=== PATIENT | male | born 1990 | race Caucasian/White ===

== ENCOUNTER → 2018-03-05 11:46 | Outpatient (CLI) | payer OTHER, SELFPAY ==
--- NOTE | 2018-03-07 09:52 | PM.PFT.1 ---
Pulmonary Function Test Referral & Results Date Patient Seen: 03/05/18 Requesting provider: Giovany Fountain Results: The spirometry demonstrates an FVC of 6.0 L which is 102% of predicted. The FEV1 was measured at 5.28 L which is 110% of predicted. The FEV1/FVC ratio was 88 which is 107% of predicted. No bronchodilator was administered Lung volumes show an SVC of 6.03 L which is 107% of predicted. No diffusing capacity was performed Interpretation: This study demonstrates normal spirometry
== END ==
PROVIDERS: Visit Provider Family Medicine
DX: Z02.1 Encounter for pre-employment examination (principal)
CPT/HCPCS: 94010

== ENCOUNTER 2018-04-11 15:37 | Emergency (ER) | payer SELFPAY ==
[2018-04-11 15:40] VITALS: PULSE 61; RESP 16; O2SAT 98
[2018-04-11 18:27] VITALS: BP 110/64; PULSE 56; RESP 19; O2SAT 99
--- NOTE | 2018-04-11 18:27 | ED.BACK ---
HPI - Back Pain/Injury <KEYONNA Holguin - Last Filed: 04/11/18 22:23> General Chief Complaint: Back Pain/Injury Stated Complaint: stated pain in back Time Seen by Provider: 04/11/18 18:28 Source: patient Mode of arrival: ambulatory Limitations: no limitations History of Present Illness HPI Narrative: 28-year-old male with history of back pain issues and is a nonsmoker for complaint of lower back pain mostly to the left side over the past several weeks. He reports that his pain has waxed and waned over this timeframe. He denies any trauma to the lower back. He states that over the past couple of days he has had pain radiating into his left posterior thigh and buttocks. He is ambulatory into the emergency room. He reports increased pain with motion of the lower back. No loss of bladder or bowel control. No numbness to the groin area. No other concerns or complaints at this Related Data Previous Rx's Medication Instructions Recorded cyclobenzaprine 10 mg PO TID PRN #15 tab 04/11/18 prednisone 40 mg PO DAILY #8 tab 04/11/18 Allergies Allergy/AdvReac Type Severity Reaction Status Date / Time No Known Drug Allergies Allergy Verified 04/11/18 15:40 Review of Systems <KEYONNA Holguin - Last Filed: 04/11/18 22:23> Constitutional Denies chills, Denies fever(s), Denies lethargy and Denies weakness Eyes Denies change in vision, Denies eye discharge, Denies irritation and Denies loss of vision ENT Ears, Nose, Mouth, and Throat: Denies change in voice, Denies neck pain and Denies sore throat Cardiovascular Denies chest pain, Denies irregular heart rhythm, Denies lightheadedness, Denies palpitations, Denies dyspnea, Denies dyspnea on exertion and Denies orthopnea Respiratory Denies cough, Denies dyspnea, Denies dyspnea on exertion and Denies wheezing Genitourinary Denies hematuria, Denies flank pain, Denies urinary incontinence and Denies urinary urgency Musculoskeletal Reports back pain and Denies neck pain Integumentary/Breasts Denies pruritus, Denies erythema, Denies rash and Denies wounds Neurologic Denies confusion, Denies loss of vision and Denies weakness Psychiatric Denies anxiety, Denies confusion, Denies depression, Denies homicidal ideation and Denies suicidal ideation Endocrine Denies palpitations Hematologic/Lymphatic Denies easy bruising Allergic/Immunologic Denies wheezing Exam <KEYONNA Holguin - Last Filed: 04/11/18 22:23> Initial Vital Signs Initial Vital Signs: Vital Signs Pulse Rate 61 04/11/18 15:40 Respiratory Rate 16 04/11/18 15:40 Pulse Oximetry 98 04/11/18 15:40 Const General: cooperative and well developed Nutritional Appearance: well nourished Orientation: alert, awake, oriented x3 and not confused HENMT Mouth: moist mucous membranes Resp Effort & Inspection: normal respiratory effort, able to speak in complete sentences, no respiratory distress and no use of accessory muscles Auscultation: clear to auscultation bilaterally, no rales, no rhonchi and no wheezes Cardio Rate: regular rate Rhythm: regular rhythm Heart Sounds: no click, no gallops, no murmurs and no rubs Pulses: normal peripheral pulses Back/Spine/Pelvis Other: Tenderness of the paraspinals of the lumbar spine. No signs of trauma to the lumbar spine area. No midline tenderness. Muscle spasm to left paraspinals. Tenderness radiates into the left buttocks area. Distal CMS is intact. Skin General: no rashes or lesions noted, No jaundice and No petechiae Neuro General: alert, oriented x3, gait normal and no focal motor deficits Speech: speech normal <Beka Pederson DO - Last Filed: 04/12/18 00:15> Initial Vital Signs Initial Vital Signs: Vital Signs Pulse Rate 61 04/11/18 15:40 Respiratory Rate 16 04/11/18 15:40 Pulse Oximetry 98 04/11/18 15:40 Course <KEYONNA Holguin - Last Filed: 04/11/18 22:23> Orders Ordered: ED Orders 04/11/18 18:48 XR lumbar spine 2-3V Stat Discontinued Medications Cyclobenzaprine HCl (Flexeril) 10 mg PO NOW ONE Stop: 04/11/18 18:50 Last Admin: 04/11/18 18:52 Dose: 10 mg Ibuprofen (Advil) 800 mg PO NOW ONE Stop: 04/11/18 20:26 Last Admin: 04/11/18 20:15 Dose: 800 mg Vital Signs - 8 hr 04/11/18 18:27 04/11/18 19:26 Pulse Rate 56 L 56 L Respiratory Rate 19 18 Blood Pressure [Right Arm] 110/64 108/65 Pulse Oximetry 99 98 <Beka Pederson DO - Last Filed: 04/12/18 00:15> Orders Ordered: ED Orders 04/11/18 18:48 XR lumbar spine 2-3V Stat Discontinued Medications Cyclobenzaprine HCl (Flexeril) 10 mg PO NOW ONE Stop: 04/11/18 18:50 Last Admin: 04/11/18 18:52 Dose: 10 mg Ibuprofen (Advil) 800 mg PO NOW ONE Stop: 04/11/18 20:26 Last Admin: 04/11/18 20:15 Dose: 800 mg Vital Signs - 8 hr 04/11/18 18:27 04/11/18 19:26 Pulse Rate 56 L 56 L Respiratory Rate 19 18 Blood Pressure [Right Arm] 110/64 108/65 Pulse Oximetry 99 98 MDM - Back Pain/Injury <KEYONNA Holguin - Last Filed: 04/11/18 22:23> Imaging Data Lumbar spine : Radiologist's impression: [place] [address] XRay Report Signed Patient: Wesley Etienne R#: [id number] : 1990Acct:[id number] Age/Sex: te of Service: 04/11/18 Loc: ED Accession Number: [id number] Procedure: XR lumbar spine 2-3V Ordering Provider: Fransico Prado PROCEDURE: XR LUMBAR SPINE 2-3V INDICATIONS: 4 week history lumbar pain TECHNIQUE: 3 views of the lumbar spine were acquired. COMPARISON: [facility], , L-SPINE 2-3 VIEWS, 10/17/2007, 15:26. FINDINGS: Bones: 5 [id number] vertebrae are present. There is suggestion of bilateral pars defect at L5 level where grade 1 anterolisthesis of L5 on S1. No vertebral body compression fractures. No suspicious bony lesions. Soft tissues: Overlying bowel gas pattern is normal. No suspicious soft tissue calcifications. IMPRESSION: No acute compression fracture in lumbar spine. Grade 1 anterolisthesis of L5 on S1 with bilateral pars defect at L5 level unchanged from 2008 study. Dictated by: Terrell Costello M.D. on 04/11/2018 at 19:18 Approved by: Terrell Costello M.D. on 04/11/2018 at 19:18 [facility] Narrative Medical decision making narrative: x-ray the lumbar spine was obtained was negative for any acute findings. X-ray was stable compared to x-ray of his lumbar spine from 2008. signs and symptoms presents as sprain into the lumbar area along with sciatica. He is prescribed cyclobenzaprine to help with muscle spasm and tension. [id number] ibuprofen as needed for discomfort. Short course of prednisone as prescribed to help with anti-inflammatory effects and sciatica. Follow up with primary care provider. Return emergency room for any worsening sym. patient desired to have more pain medication other than Tylenol or ibuprofen. Patient was informed that I was not comfortable prescribing narcotics at this timeframe. Patients history does list polysubstance abuse. <Beka Pederson, - Last Filed: 04/12/18 00:15> Cosign ED Attending Lloyd Attestation: I was immediately available in the department for consultation. Documentation has been reviewed. I agree with assessment and plan.
--- NOTE | 2018-04-11 18:48 | DI.RAD.S_ITS ---
PROCEDURE: XR LUMBAR SPINE 2-3V INDICATIONS: 4 week history lumbar pain TECHNIQUE: 3 views of the lumbar spine were acquired. COMPARISON: [facility], , L-SPINE 2-3 VIEWS, 10/17/2007, 15:26. FINDINGS: Bones: 5 [id number] vertebrae are present. There is suggestion of bilateral pars defect at L5 level where grade 1 anterolisthesis of L5 on S1. No vertebral body compression fractures. No suspicious bony lesions. Soft tissues: Overlying bowel gas pattern is normal. No suspicious soft tissue calcifications. IMPRESSION: No acute compression fracture in lumbar spine. Grade 1 anterolisthesis of L5 on S1 with bilateral pars defect at L5 level unchanged from 2007 study. Dictated by: Terrell Costello M.D. on 04/11/2018 at 19:18 Approved by: Terrell Costello M.D. on 04/11/2018 at 19:18
[2018-04-11] MEDS: CYCLOBENZAPRINE 10 MG TABLET PO (18:52)
[2018-04-11 19:26] VITALS: BP 108/65; PULSE 56; RESP 18; O2SAT 98
[2018-04-11] MEDS: IBUPROFEN 400 MG TABLET 800 MG PO (20:15)
--- NOTE | 2018-04-11 20:47 | PC.NURSE ---
Pt states still in 9 pain at 1940, flexeril is not working. Reports came here to see a Dr and wants to see Dr Pederson not a Nurse Practitioner, Johan who has been providing care. Charge Nurse, KEYONNA Prado and Dr Pederson aware. KEYONNA Prado, back in room to update pt. Pt was offered ibuprofen and declined initially then changed his mind and was given 800mg ibuprofen po.
--- NOTE | 2018-04-11 22:17 | ED.BACK ---
HPI - Back Pain/Injury <KEYONNA Holguin - Last Filed: 04/11/18 22:22> General Chief Complaint: Back Pain/Injury Stated Complaint: stated pain in back Time Seen by Provider: 04/11/18 18:28 Source: patient Mode of arrival: ambulatory Limitations: no limitations History of Present Illness HPI Narrative: 28-year-old healthy male that is a nonsmoker here for complaint of pain into his left lower back over the past several weeks. He states that he was lifting his cramping 8 when his symptoms started. he denies any trauma to the lower back area. No loss of bladder or bowel control. No numbness to his groin area. He reports that the pain radiates into his left buttocks area and left post MD Complaint: back pain Related Data Previous Rx's Medication Instructions Recorded cyclobenzaprine 10 mg PO TID PRN #15 tab 04/11/18 prednisone 40 mg PO DAILY #8 tab 04/11/18 Allergies Allergy/AdvReac Type Severity Reaction Status Date / Time No Known Drug Allergies Allergy Verified 04/11/18 15:40 Review of Systems <KEYONNA Holguin - Last Filed: 04/11/18 22:22> Constitutional Denies weakness Eyes Denies loss of vision ENT Ears, Nose, Mouth, and Throat: Denies change in voice, Denies neck pain and Denies sore throat Cardiovascular Denies chest pain, Denies irregular heart rhythm, Denies lightheadedness, Denies palpitations, Denies dyspnea, Denies dyspnea on exertion and Denies orthopnea Respiratory Denies cough, Denies dyspnea, Denies dyspnea on exertion and Denies wheezing Gastrointestinal Gastrointestinal: Denies abdominal pain, Denies change in bowel habits, Denies diarrhea, Denies nausea and Denies vomiting Musculoskeletal Denies neck pain Comments: Left lumbar back pain Integumentary/Breasts Denies pruritus, Denies erythema, Denies rash and Denies wounds Neurologic Denies confusion, Denies loss of vision and Denies weakness Psychiatric Denies confusion Endocrine Denies palpitations Hematologic/Lymphatic Denies easy bruising Allergic/Immunologic Denies wheezing Exam <KEYONNA Holguin - Last Filed: 04/11/18 22:22> Initial Vital Signs Initial Vital Signs: Vital Signs Pulse Rate 61 04/11/18 15:40 Respiratory Rate 16 04/11/18 15:40 Pulse Oximetry 98 02/20/19 15:40 Const General: cooperative and well developed Nutritional Appearance: well nourished Orientation: alert, awake, oriented x3 and not confused HENNE Mouth: oral mucosae normal and moist mucous membranes Eyes Conjunctivae: conjunctivae normal Sclera: sclerae normal Pupils: PERRL EOM: EOM intact bilaterally Resp Effort & Inspection: normal respiratory effort, able to speak in complete sentences, no respiratory distress and no use of accessory muscles Auscultation: clear to auscultation bilaterally, no rales, no rhonchi and no wheezes Cardio Rate: regular rate Rhythm: regular rhythm Heart Sounds: no click, no gallops, no murmurs and no rubs Pulses: normal peripheral pulses Back/Spine/Pelvis Other: tenderness on palpation to the paraspinals of the the left lumbar region. Back with no signs of trauma. No ecchymosis. No deformities. No midline tenderness. Distal sensation is intact. Distal range of motion is intact. Dista Skin General: no rashes or lesions noted, No jaundice and No petechiae Neuro General: alert, oriented x3, gait normal and no focal motor deficits Speech: speech normal <Beka Pederson DO - Last Filed: 04/12/18 00:15> Initial Vital Signs Initial Vital Signs: Vital Signs Pulse Rate 61 04/11/18 15:40 Respiratory Rate 16 04/11/18 15:40 Pulse Oximetry 98 04/11/18 15:40 Course <KEYONNA Holguin - Last Filed: 04/11/18 22:22> Orders Ordered: ED Orders 04/11/18 18:48 XR lumbar spine 2-3V Stat Discontinued Medications Cyclobenzaprine HCl (Flexeril) 10 mg PO NOW ONE Stop: 04/11/18 18:50 Last Admin: 04/11/18 18:52 Dose: 10 mg Ibuprofen (Advil) 800 mg PO NOW ONE Stop: 04/11/18 20:26 Last Admin: 04/11/18 20:15 Dose: 800 mg Vital Signs - 8 hr 04/11/18 18:27 04/11/18 19:26 Pulse Rate 56 L 56 L Respiratory Rate 19 18 Blood Pressure [Right Arm] 110/64 108/65 Pulse Oximetry 99 98 <Beka Pederson DO - Last Filed: 04/12/18 00:15> Orders Ordered: ED Orders 04/11/18 18:48 XR lumbar spine 2-3V Stat Discontinued Medications Cyclobenzaprine HCl (Flexeril) 10 mg PO NOW ONE Stop: 04/11/18 18:50 Last Admin: 04/11/18 18:52 Dose: 10 mg Ibuprofen (Advil) 800 mg PO NOW ONE Stop: 04/11/18 20:26 Last Admin: 04/11/18 20:15 Dose: 800 mg Vital Signs - 8 hr 04/11/18 18:27 04/11/18 19:26 Pulse Rate 56 L 56 L Respiratory Rate 19 18 Blood Pressure [Right Arm] 110/64 108/65 Pulse Oximetry 99 98 MDM - Back Pain/Injury <KEYONNA Holguin - Last Filed: 04/11/18 22:22> MDM Narrative Medical decision making narrative: Sinus symptoms presents as a lumbar strain with muscle spasm and sciatica to the left side. He is placed on a muscle relaxer cyclobenzaprine. Also use [id number]-[id number] ibuprofen. Short course of prednisone is provided for anti-inflammatory effects for the sciatica. For rest area. Gentle range of motion to painful areas help keep muscle fluids. Follow up with primary care provider. Return emergency room for any worsening symptoms. Discharge Plan Departure Patient Disposition: Home Clinical Impression: Sciatica of left side Strain of lumbar region Qualifiers: Encounter type: initial encounter Qualified Code(s): S39.012A - Strain of muscle, fascia and tendon of lower back, initial encounter Discharge Date/Time: 04/11/18 19:52 Interventions: ED Discharge Assessment Last Done: 04/11/18 19:52 Instructions: DI for Back Pain With Sciatica, DI for Back Strain or Sprain Activity Restrictions/Additional Instructions: x-ray of the lumbar spine was obtained was negative for any acute fractures or findings. X-ray is stable compared with prior x-ray obtained in 2007. Signs and symptoms presents sprain into the lumbar region causing sciatica to the left side. Rest area. Gentle range of motion painful areas to help keep muscles loose. you are prescribed a muscle relaxer called cyclobenzaprine help loosen muscles. Use yhbr-haj-[id number] ibuprofen as needed for discomfort anti-inflammatory effects. Short course of prednisone as prescribed for anti-inflammatory effects use as directed. Follow up with her primary care provider. Return emergency room for any worsening symptoms. Prescriptions: New cyclobenzaprine 10 mg tablet 10 mg PO TID PRN (Reason: muscle spasm) Qty: 15 RF: 0 prednisone 20 mg tablet 40 mg PO DAILY Qty: 8 RF: 0 Referrals: [facility] [Provider Group] <Beka Pederson DO - Last Filed: 04/12/18 00:15> Cosign ED Attending Lloyd Attestation: I was immediately available in the department for consultation. Documentation has been reviewed. I agree with assessment and plan.
--- NOTE | 2018-04-11 22:22 | ED_ITS ---
HPI - Back Pain/Injury <KEYONNA Holguin - Last Filed: 04/11/18 22:22> General Chief Complaint: Back Pain/Injury Stated Complaint: stated pain in back Time Seen by Provider: 04/11/18 18:28 Source: patient Mode of arrival: ambulatory Limitations: no limitations History of Present Illness HPI Narrative: 28-year-old healthy male that is a nonsmoker here for complaint of pain into his left lower back over the past several weeks. He states that he was lifting his cramping 8 when his symptoms started. he denies any trauma to the lower back area. No loss of bladder or bowel control. No numbness to his groin area. He reports that the pain radiates into his left buttocks area and left post MD Complaint: back pain Related Data Previous Rx's Medication Instructions Recorded cyclobenzaprine 10 mg PO TID PRN #15 tab 04/11/18 prednisone 40 mg PO DAILY #8 tab 04/11/18 Allergies Allergy/AdvReac Type Severity Reaction Status Date / Time No Known Drug Allergies Allergy Verified 04/11/18 15:40 Review of Systems <KEYONNA Holguin - Last Filed: 04/11/18 22:22> Constitutional Denies weakness Eyes Denies loss of vision ENT Ears, Nose, Mouth, and Throat: Denies change in voice, Denies neck pain and Denies sore throat Cardiovascular Denies chest pain, Denies irregular heart rhythm, Denies lightheadedness, Denies palpitations, Denies dyspnea, Denies dyspnea on exertion and Denies orthopnea Respiratory Denies cough, Denies dyspnea, Denies dyspnea on exertion and Denies wheezing Gastrointestinal Gastrointestinal: Denies abdominal pain, Denies change in bowel habits, Denies diarrhea, Denies nausea and Denies vomiting Musculoskeletal Denies neck pain Comments: Left lumbar back pain Integumentary/Breasts Denies pruritus, Denies erythema, Denies rash and Denies wounds Neurologic Denies confusion, Denies loss of vision and Denies weakness Psychiatric Denies confusion Endocrine Denies palpitations Hematologic/Lymphatic Denies easy bruising Allergic/Immunologic Denies wheezing Exam <KEYONNA Holguin - Last Filed: 04/11/18 22:22> Initial Vital Signs Initial Vital Signs: Vital Signs Pulse Rate 61 04/11/18 15:40 Respiratory Rate 16 04/11/18 15:40 Pulse Oximetry 98 02/20/19 15:40 Const General: cooperative and well developed Nutritional Appearance: well nourished Orientation: alert, awake, oriented x3 and not confused HENNM Mouth: oral mucosae normal and moist mucous membranes Eyes Conjunctivae: conjunctivae normal Sclera: sclerae normal Pupils: PERRL EOM: EOM intact bilaterally Resp Effort & Inspection: normal respiratory effort, able to speak in complete sentences, no respiratory distress and no use of accessory muscles Auscultation: clear to auscultation bilaterally, no rales, no rhonchi and no wheezes Cardio Rate: regular rate Rhythm: regular rhythm Heart Sounds: no click, no gallops, no murmurs and no rubs Pulses: normal peripheral pulses Back/Spine/Pelvis Other: tenderness on palpation to the paraspinals of the the left lumbar region. Back with no signs of trauma. No ecchymosis. No deformities. No midline tenderness. Distal sensation is intact. Distal range of motion is intact. Dista Skin General: no rashes or lesions noted, No jaundice and No petechiae Neuro General: alert, oriented x3, gait normal and no focal motor deficits Speech: speech normal <Beka Pederson DO - Last Filed: 04/12/18 00:15> Initial Vital Signs Initial Vital Signs: Vital Signs Pulse Rate 61 04/11/18 15:40 Respiratory Rate 16 04/11/18 15:40 Pulse Oximetry 98 04/11/18 15:40 Course <KEYONNA Holugin - Last Filed: 04/11/18 22:22> Orders Ordered: ED Orders 04/11/18 18:48 XR lumbar spine 2-3V Stat Discontinued Medications Cyclobenzaprine HCl (Flexeril) 10 mg PO NOW ONE Stop: 04/11/18 18:50 Last Admin: 04/11/18 18:52 Dose: 10 mg Ibuprofen (Advil) 800 mg PO NOW ONE Stop: 04/11/18 20:26 Last Admin: 04/11/18 20:15 Dose: 800 mg Vital Signs - 8 hr 04/11/18 18:27 04/11/18 19:26 Pulse Rate 56 L 56 L Respiratory Rate 19 18 Blood Pressure [Right Arm] 110/64 108/65 Pulse Oximetry 99 98 <Beka Pederson DO - Last Filed: 04/12/18 00:15> Orders Ordered: ED Orders 04/11/18 18:48 XR lumbar spine 2-3V Stat Discontinued Medications Cyclobenzaprine HCl (Flexeril) 10 mg PO NOW ONE Stop: 04/11/18 18:50 Last Admin: 04/11/18 18:52 Dose: 10 mg Ibuprofen (Advil) 800 mg PO NOW ONE Stop: 04/11/18 20:26 Last Admin: 04/11/18 20:15 Dose: 800 mg Vital Signs - 8 hr 04/11/18 18:27 04/11/18 19:26 Pulse Rate 56 L 56 L Respiratory Rate 19 18 Blood Pressure [Right Arm] 110/64 108/65 Pulse Oximetry 99 98 MDM - Back Pain/Injury <KEYONNA Holguin - Last Filed: 04/11/18 22:22> MDM Narrative Medical decision making narrative: Sinus symptoms presents as a lumbar strain with muscle spasm and sciatica to the left side. He is placed on a muscle relaxer cyclobenzaprine. Also use [id number] ibuprofen. Short course of prednisone is provided for anti-inflammatory effects for the sciatica. For rest area. Gentle range of motion to painful areas help keep muscle fluids. Follow up with primary care provider. Return emergency room for any worsening symptoms. Discharge Plan Departure Patient Disposition: Home Clinical Impression: Sciatica of left side Strain of lumbar region Qualifiers: Encounter type: initial encounter Qualified Code(s): S39.012A - Strain of muscle, fascia and tendon of lower back, initial encounter Discharge Date/Time: 04/11/18 19:52 Interventions: ED Discharge Assessment Last Done: 04/11/18 19:52 Instructions: DI for Back Pain With Sciatica, DI for Back Strain or Sprain Activity Restrictions/Additional Instructions: x-ray of the lumbar spine was obtained was negative for any acute fractures or findings. X-ray is stable compared with prior x-ray obtained in 2007. Signs and symptoms presents sprain into the lumbar region causing sciatica to the left side. Rest area. Gentle range of motion painful areas to help keep muscles loose. you are prescribed a muscle relaxer called cyclobenzaprine help loosen muscles. Use [id number] ibuprofen as needed for discomfort anti- inflammatory effects. Short course of prednisone as prescribed for anti- inflammatory effects use as directed. Follow up with her primary care provider. Return emergency room for any worsening symptoms. Prescriptions: New cyclobenzaprine 10 mg tablet 10 mg PO TID PRN (Reason: muscle spasm) Qty: 15 RF: 0 prednisone 20 mg tablet 40 mg PO DAILY Qty: 8 RF: 0 Referrals: [facility] [Provider Group] <Beka Pederson DO - Last Filed: 04/12/18 00:15> Cosign ED Attending Lloyd Attestation: I was immediately available in the department for consultation. Documentation has been reviewed. I agree with assessment and plan.
== END 2018-04-11 19:52 | disposition home or self-care (01) ==
PROVIDERS: Emergency Provider Nurse Practitioner Family
DX: S39.012A Strain of muscle, fascia and tendon of lower back, initial encounter (principal); M54.32 Sciatica, left side
CPT/HCPCS: 72100; 99283

== ENCOUNTER 2019-01-03 16:57 | Emergency (ER) | payer MEDICAID, SELFPAY ==
[2019-01-03 17:04] VITALS: BP 129/78; PULSE 78; RESP 16; TEMP 36.4; O2SAT 97; BMI 23.7
--- NOTE | 2019-01-03 17:07 | DI.RAD.S_ITS ---
PROCEDURE: XR FOREARM RT 2V INDICATIONS: localized swelling and pain to right forearm TECHNIQUE: 2 views of the forearm were acquired. COMPARISON: [facility], , HAND AND WRIST 3V RIGHT, 10/01/2012, 18:15. FINDINGS: Bones: No fractures or dislocations. No suspicious bony lesions. Soft tissues: No suspicious soft tissue calcifications or masses. IMPRESSION: Negative plain films. Dictated by: Jairo Delcid M.D. on 01/03/2019 at 16:25 Approved by: Jairo Delcid M.D. on 01/03/2019 at 16:31
--- NOTE | 2019-01-03 17:08 | PC.NURSE ---
Pt with localized distal forearm swelling x 2 days without trauma. no open sores. 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 mild ecchymosis to area. 2+ pulse palpable. reports he is unable to fully make a fist and open hand due to pain.
--- NOTE | 2019-01-03 17:13 | ED.UPPEXIN ---
HPI - Extremity Injury (Upper) <KEYONNA Stokes - Last Filed: 01/03/19 19:40> General Chief Complaint: Extremity Injury, Upper Stated Complaint: swollen right arm Time Seen by Provider: 01/03/19 17:00 Source: patient Mode of arrival: Ambulatory Limitations: no limitations History of Present Illness HPI narrative: 28yo healthy male, presents emergency department complaining of a swollen right forearm. 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 He states he noted some soreness and swelling to the radial aspect of his distal forearm yesterday, today he returned from work and noticed increased swelling and slight amount of bruising to the area. He reports pain with making a fist and with radial flexion of the hand. He states the pain is a dull aching 5/10. Patient took some ibuprofen today about 2 hours ago which has not relieved the swelling or the pain. He denies any previous injury to the area or any trauma to the area. He denies fevers, chills, history of gout, history of immune disorders, elbow pain, hand pain, nausea, vomiting, diarrhea, or other concerns. Related Data Previous Rx's Medication Instructions Recorded cyclobenzaprine 10 mg PO TID PRN #15 tab 04/11/18 prednisone 40 mg PO DAILY #8 tab 04/11/18 ketorolac 10 mg PO Q6H PRN 5 Days #14 tab 01/03/19 Allergies Allergy/AdvReac Type Severity Reaction Status Date / Time No Known Drug Allergies Allergy Verified 04/11/18 15:40 Review of Systems <KEYONNA Stokes - Last Filed: 01/03/19 19:40> Review of Systems Narrative: REVIEW OF SYSTEMS: GENERAL: Denies fever or chills. HENT: No head trauma. EYES: No double vision or vision loss. CARDIOVASCULAR: No chest pain or syncope. RESPIRATORY: No shortness of breath or cough. GASTROINTESTINAL: No nausea, vomiting, diarrhea, or constipation. GENITOURINARY: No flank pain or dysuria. MUSCULOSKELETAL: Complains of right forearm pain, see HPI. INTEGUMENTARY: No rash, lesions, or pruritus. NEURO: No numbness, tingling. PSYCH: No behavior or mood changes. Patient History <KEYONNA Stokes - Last Filed: 01/03/19 19:40> Medical History No significant medical problems (Acute) Social History Smoking Status: Never smoker alcohol intake frequency: holidays/special occasions only Substance Use Type: does not use Exam <KEYONNA Stokes - Last Filed: 01/03/19 19:40> Initial Vital Signs Initial Vital Signs: Vital Signs Temperature 97.5 F L 01/03/19 17:04 Pulse Rate 78 01/03/19 17:04 Respiratory Rate 16 01/03/19 17:04 Blood Pressure 129/78 01/03/19 17:04 Pulse Oximetry 97 01/03/19 17:04 PHYSICAL EXAMINATION: GENERAL: Well groomed, alert, and cooperative. Answers questions promptly and appropriately. Vital signs noted. HENT: Normocephalic, atraumatic. EYES: Symmetrical, sclera white, no periorbital swelling. CARDIOVASCULAR: S1 and S2 sounds normal. Regular rate and rhythm, no murmurs, clicks, or bruits. No pedal edema. RESPIRATORY: Normal respiratory rate, trachea midline, airway patent. No stridor, nasal flaring or accessory muscle use. Lungs are clear in all asencio. MUSCULOSKELETAL: A 8cm x 5cm hematoma with slight ecchymosis noted to radial aspect of distal right forearm, tenderness to palpation, no increased temperature, no erythema, + tenderness with palpation to area. Swelling to area decreased after an application of ice. Normal gait and coordination. Equal tone and mass bilaterally. No spinal tenderness or deformities. EXTREMITIES: CMS intact. No pedal edema. SKIN: Warm, dry, soft, appropriate color for ethnicity. No lesions, rashes, or wounds. NEURO: Alert and Oriented X 3. No sensory deficits. PSYCH: Appropriate affect and mood. <Radhames Allen DO - Last Filed: 01/09/19 07:25> Initial Vital Signs Initial Vital Signs: Vital Signs Temperature 97.5 F L 01/03/19 17:04 Pulse Rate 78 01/03/19 17:04 Respiratory Rate 16 01/03/19 17:04 Blood Pressure 129/78 01/03/19 17:04 Pulse Oximetry 97 01/03/19 17:04 Course <KEYONNA Stokes - Last Filed: 01/03/19 19:40> Course Course Narrative: Matt wrap was applied to the area and a wrist brace was given. Orders Ordered: ED Orders 01/03/19 17:07 XR forearm RT 2V Stat Consultations Consultation #1: Patient staffed with Dr. Allen. Vital Signs Vital signs: Vital Signs - 8 hr 01/03/19 17:04 01/03/19 18:17 Temperature 97.5 F L Pulse Rate 78 77 Respiratory Rate 16 16 Blood Pressure 129/78 124/72 Pulse Oximetry 97 98 <Radhames Allen DO - Last Filed: 01/09/19 07:25> Orders Ordered: ED Orders 01/03/19 17:07 XR forearm RT 2V Stat Vital Signs Vital signs: Vital Signs - 8 hr 01/03/19 17:04 01/03/19 18:17 Temperature 97.5 F L Pulse Rate 78 77 Respiratory Rate 16 16 Blood Pressure 129/78 124/72 Pulse Oximetry 97 98 MDM - Extremity Injury (Upper) <KEYONNA Stokes - Last Filed: 01/03/19 19:40> Medical Records Attestation: I reviewed the patient's medical records. Lab Data Attestation: I reviewed the patient's lab results. Imaging Data R forearm XR: Radiologist's impression: [address] [address] XRay Report Signed Patient: Wesley Etienne R#: [id number] : 1990Acct:[id number] Age/Sex: / MDate of Service: 01/03/19 Loc: ED Accession Number: [id number] Procedure: XR forearm RT 2V Ordering Provider: Evelyn Vides PROCEDURE: XR FOREARM RT 2V INDICATIONS: localized swelling and pain to right forearm TECHNIQUE: 2 views of the forearm were acquired. COMPARISON: [facility], , HAND AND WRIST 3V RIGHT, 10/01/2012, 18:15. FINDINGS: Bones: No fractures or dislocations. No suspicious bony lesions. Soft tissues: No suspicious soft tissue calcifications or masses. IMPRESSION: Negative plain films. Dictated by: Jairo Delcid M.D. on 01/03/2019 at 16:25 Approved by: Jairo Delcid M.D. on 01/03/2019 at 16:31 MDM Narrative Medical decision making narrative: This is a 28-year-old male presents emergency department for swelling to his right radial aspect of his distal forearm. X-rays negative for any fractures. Patient has decreased range of motion due to pain but is able to move wrist and thumb. Differential includes tendinitis, tendon sprain, or muscle strain (most likely due to bruising and swelling, reports of repetitive use of hand, negative x-ray, decreased swelling well emergency without ice). Less likely cellulitis due to lack of increased temp, redness, fevers, chills, or tachycardia. Less likely abscess due to lack of fluctuance or wound. Strict return precautions given. Patient was encouraged to follow up with his primary care provider for discussion of further testing and or physical therapy if symptoms continue. He was encouraged to monitor his activity closely for repetitive motions that may aggravate his symptoms. Discharge Plan Departure Patient Disposition: Home Clinical Impression: Contusion Qualifiers: Encounter type: initial encounter Contusion area: forearm Laterality: right Qualified Code(s): S50.11XA - Contusion of right forearm, initial encounter Forearm sprain Qualifiers: Encounter type: initial encounter Laterality: right Qualified Code(s): S63.501A - Unspecified sprain of right wrist, initial encounter Discharge Date/Time: 01/03/19 18:17 Instructions: DI for Wrist Sprain Activity Restrictions/Additional Instructions: Thank you for entrusting me with your care today. As discussed, your x-rays negative for any fractures. Your symptoms are most likely caused by a muscle strain. Please use an Matt wrap and brace as needed for comfort and swelling. I prescribed you Toradol, please take this with food as it can cause GI distress. Follow up with your primary care provider in the next week for re-evaluation to discuss further treatment and/or testing if needed such as physical therapy. Return emergency department if you develop new or worsening symptoms such as increased redness, high fevers, chest pain, shortness of breath, or other concerns Prescriptions: New ketorolac 10 mg tablet 10 mg PO Q6H PRN (Reason: pain and swelling) 5 Days Qty: 14 RF: 0 No Action cyclobenzaprine 10 mg tablet 10 mg PO TID PRN (Reason: muscle spasm) Qty: 15 RF: 0 prednisone 20 mg tablet 40 mg PO DAILY Qty: 8 RF: 0 <Radhames Allen, DO - Last Filed: 01/09/19 07:25> Sign Out Provider Sign Out Attestation: Dr Allen Co-Sign Statement: I was available for consultation during this patient's emergency department visit. This chart is signed by myself for administrative purposes only. I did not have direct contact with this patient during this visit. They were seen independently by the APC.
[2019-01-03 18:17] VITALS: BP 124/72; PULSE 77; RESP 16; O2SAT 98
== END 2019-01-03 18:17 | disposition home or self-care (01) ==
PROVIDERS: Emergency Provider Nurse Practitioner
DX: S50.11XA Contusion of right forearm, initial encounter (principal); S63.501A Unspecified sprain of right wrist, initial encounter; X50.3XXA Overexertion from repetitive movements, initial encounter
CPT/HCPCS: 29260; 73090; 99282; 99283

== ENCOUNTER → 2019-05-23 07:58 | Outpatient (CLI) | payer MEDICAID, SELFPAY ==
--- NOTE | 2019-05-23 | DI.ECHO.S_ITS ---
[facility] +---------+ [facility] +---------+ : : [id number] : : : : [id number] : : : : Phone: [phone] Echocardiogram Report + + :Name: MARILEE CHASE V Study Date: 05/23/2019 Height: 72 in : :[facility] Weight: 170 lb : : Gender: Male BSA: 2.0 m2 : :: 1990 Age: 29 yrs BP: 140/88 mmHg: :Reason For Study: Syncope : : Performed By: Tess Holcomb : :Referring: MARILEE CACERES : + + Interpretation Summary The left ventricle is normal in size and wall thickness. The ejection fraction is estimated to be 55-60%. Global longitudinal peak systolic strain is -16.3% which is within normal limtes. Diastolic parameters suggest probable normal left ventricular diastolic function and normal filling pressures. The right ventricle is normal in size and function. Pulmonary artery pressures cannot be estimated because of the lack of a measurable TR jet velocity but the IVC suggests a CVP of around 3 mmHg. Both atria are normal in size. There is no significant valvular heart disease. The aortic root is normal size. Procedure: A two-dimensional transthoracic echocardiogram with color flow and Doppler was performed. The study quality was technically adequate. There is no prior echocardiogram noted for this patient. The patient was in sinus bradycardia with heart rates between 53-69 bpm during the exam. Left Ventricle: The left ventricle is normal in size and wall thickness. The ejection fraction is estimated to be 55-60%. Global longitudinal peak systolic strain is -16.3% which is within normal limtes. Diastolic parameters suggest probable normal left ventricular diastolic function and normal filling pressures. Right Ventricle: The right ventricle is normal in size and function. Atria: Both atria are normal in size. There is no Doppler evidence for an interatrial shunt. Mitral Valve: The mitral valve is normal in structure and function. There is trace mitral regurgitation. Aortic Valve: The aortic valve is trileaflet. The aortic valve opens well. There is no aortic valve stenosis. No aortic regurgitation is present. Tricuspid Valve: The tricuspid valve is normal in structure and function. There is a trace or physiologic amount of tricuspid regurgitation. Pulmonary artery pressures cannot be estimated because of the lack of a measurable TR jet velocity but the IVC suggests a CVP of around 3 mmHg. There is mild tricuspid regurgitation. Pulmonic Valve: The pulmonic valve is normal in structure and function. There is mild pulmonic regurgitation. There is no significant valvular heart disease. Great Vessels: The aortic root is normal size. The dimensions of the ascending aorta are normal. The IVC is of normal diameter and collapses greater than 50% with a sniff. This suggests a low right atrial pressure of 3 mm Hg. Pericardium/ Pleura There is no pericardial effusion. There has been no significant change since the previous study. MMode/2D Measurements & Calculations LVIDd: 5.2 cm LVOT diam: 2.3 cm LVIDs: 3.6 cm Ao root diam: 3.6 cm FS: 30.2 % asc Aorta Diam: 3.2 cm EPSS: 0.62 cm Ao Arch Diam (Prox Trans): 2.7 cm IVSd: 0.86 cm LVPWd: 1.0 cm LV young. diameter/BSA (cm/m^2): 2.6 LV sys. diameter/BSA (cm/m^2): 1.8 LA A2 area: 19.1 cm2 RA long axis: 4.7 cm LA A4 area: 19.0 cm2 RA area: 16.2 cm2 LA length (vol): 5.2 cm RA vol: 47.6 ml LA vol: 59.5 ml RA : 24.0 ml/m2 LA vol index: 29.9 ml/m2 IVC diam: 1.8 cm RVD1 (basal): 3.8 cm TAPSE: 2.1 cm Doppler Measurements & Calculations Ao V2 max: 108.5 cm/sec LVOT Max Ford: 102.9 cm/sec Ao V2 mean: 66.1 cm/sec LV V1 max P.2 mmHg Ao max P.7 mmHg LV V1 VTI: 20.1 cm Ao mean P.2 mmHg PARAMJIT(I,D): 3.9 cm2 Ao V2 VTI: 20.7 cm PARAMJIT(V,D): 3.8 cm2 sev ratio: 0.97 PARAMJIT indexed to BSA (cm^2/m^2): 2.0 MV E max ford: 54.4 cm/sec PA V2 max: 81.3 cm/sec MV A max ford: 30.3 cm/sec PA V2 mean: 50.3 cm/sec MV E/A: 1.8 PA mean P.2 mmHg Med Peak E' Ford: 13.0 cm/sec PA pr(Accel): 12.0 mmHg E/E' med: 4.2 PA Accel Time: 0.15 sec Lat Peak E' Ford: 15.3 cm/sec E/E' lat: 3.6 E/e' average: 3.9 MV dec time: 0.23 sec MV P1/2t: 68.5 msec MV P1/2t max ford: 55.4 cm/sec SV(LVOT): 81.2 ml MVA(P1/2t): 3.2 cm2 Reading Physician:06:31 PM
== END ==
PROVIDERS: Referring Provider Physician Assistant; Visit Provider Physician Assistant
DX: I07.1 Rheumatic tricuspid insufficiency (principal); I37.1 Nonrheumatic pulmonary valve insufficiency; R55 Syncope and collapse
CPT/HCPCS: 93306

== ENCOUNTER 2021-02-18 08:55 | Emergency (ER) | payer MEDICAID, SELFPAY ==
[2021-02-18 08:56] VITALS: BP 124/84; PULSE 81; RESP 18; TEMP 36.4; O2SAT 99
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
== END 2021-02-18 10:01 | disposition home or self-care (01) ==
PROVIDERS: Emergency Provider Emergency Medicine
DX: H72.93 Unspecified perforation of tympanic membrane, bilateral (principal)
CPT/HCPCS: 99281

== ENCOUNTER → 2023-04-17 07:10 | Outpatient (CLI) | payer MEDICAID, SELFPAY ==
--- NOTE | 2023-04-17 07:14 | DI.US.S_ITS ---
PROCEDURE: US ABDOMEN LIMITED INDICATIONS: Abnormal levels of other serum enzymes TECHNIQUE: Real-time scanning was performed of the abdominal and retroperitoneal organs, with image documentation. COMPARISON: None. FINDINGS: Liver: Liver is normal in size and homogeneous in echotexture. Gallbladder: There is a small mobile 2.4 mm gallstone. No wall thickening. No pericholecystic fluid. Negative sonographic Melendez's sign. Biliary ducts: Intrahepatic bile ducts are non-dilated. Extrahepatic bile duct caliber measures 3.5 mm. Normal is 6-7 mm or less in diameter, or 10 mm or less post-cholecystectomy. Miscellaneous: No free abdominal fluid. IMPRESSION: Cholelithiasis without sonographic evidence for acute cholecystitis. Dictated by: Alfred Dunbar M.D. on 04/17/2023 at 10:08 Approved by: Alfred Dunbar M.D. on 04/17/2023 at 10:09
== END ==
LOC: US 07:13
PROVIDERS: Referring Provider Physician Assistant; Visit Provider Physician Assistant
DX: R74.8 Abnormal levels of other serum enzymes (principal); K80.20 Calculus of gallbladder without cholecystitis without obstruction
CPT/HCPCS: 76705

== ENCOUNTER → 2023-04-26 09:17 | Outpatient (CLI) | payer MEDICAID, SELFPAY | LOC: CAR 09:18 | PROVIDERS: Referring Provider Nurse Practitioner Family; Visit Provider Nurse Practitioner Family | DX: R55 Syncope and collapse (principal); I46.9 Cardiac arrest, cause unspecified | CPT/HCPCS: 93242 ==

== ENCOUNTER → 2023-05-19 08:43 | Outpatient (CLI) | payer MEDICAID, SELFPAY ==
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
== END ==
PROVIDERS: PCP Nurse Practitioner Family; Referring Provider Nurse Practitioner Family; Visit Provider Nurse Practitioner Family
DX: Z02.89 Encounter for other administrative examinations (principal)
CPT/HCPCS: 71046

== ENCOUNTER 2024-08-09 06:06 | Emergency (ER) | payer MEDICAID, SELFPAY ==
[2024-08-09] VITALS (7 sets, daily range): BP systolic 106–133; BP diastolic 60–78; PULSE 70–78; RESP 16–18; TEMP 36.7–36.9; O2SAT 95–97; BMI 27.8
--- NOTE | 2024-08-09 06:20 | ED.WOUNDLAC ---
HPI - Wound/Laceration General Chief Complaint: Wound/Laceration Stated Complaint: Cut left Index finger, Time Seen by Provider: 08/09/24 06:19 History of Present Illness HPI narrative: 34-year-old male up-to-date to his tetanus, presents for laceration to his left index finger, he states that around 8:00 p.m. he cut it on a knife while he was cooking. He states that the bleeding has persisted through the night and therefore decided come into the ED for further evaluation treatment. Neurovascularly intact to upper extremity not on any blood thinners denies any other injuries Related Data Previous Rx's ?Medication ?Instructions ?Recorded cyclobenzaprine 10 mg tablet 10 mg PO TID PRN muscle spasm #15 04/11/18 tabs prednisone 20 mg tablet 40 mg (2 x 20 mg) PO DAILY #8 tabs 04/11/18 amoxicillin 875 mg-potassium 1 tab PO BID #14 tabs 08/31/20 clavulanate 125 mg tablet (Augmentin) amoxicillin 875 mg-potassium 1 tab PO BID #14 tabs 02/18/21 clavulanate 125 mg tablet (Augmentin) oxycodone-acetaminophen 5 mg-325 1 tab PO Q6H PRN pain #14 tabs 02/18/21 mg tablet Allergies Allergy/AdvReac Type Severity Reaction Status Date / Time No Known Drug Allergies Allergy Verified 04/11/18 15:40 Review of Systems Review of Systems Narrative: General: Denies fever, chills, weight loss HEENT: Denies headache, eye drainage, eye irritation, head trauma, sore throat, voice change Cardiovascular: Denies any chest pain, palpitations, tachycardia Respiratory: Denies any shortness of breath, cough, wheeze, stridor GI/: Denies any abdominal pain, nausea, vomiting, diarrhea, bright red blood per rectum, melanotic stools, urinary frequency, urinary retention, dysuria, hematuria MSK: Laceration to the distal aspect of the left pointer finger Skin: Denies any rashes, lesions, discoloration Neuro: Denies any headache, lightheadedness, dizziness, fainting, weakness Psych: Denies SI/HI Patient History Medical History (Updated 08/09/24 @ 06:25 by Dale Salvador DO) No significant medical problems alcohol intake frequency: holidays/special occasions only Exam Narrative Exam Narrative: General: Cooperative, well-developed, not in acute distress HEENT: Normocephalic, atraumatic, PERRLA, normal sclera, eyelids normal Neck: Active full range of motion, atraumatic Chest: Normal to inspection, negative crepitus, no overlying erythema ecchymosis Respiratory: Normal respiratory effort, not in acute respiratory distress, clear to auscultation bilaterally negative cough, wheeze, tachypnea, rhonchi, rales Cardiology: Regular rate rhythm negative gallop, murmur, rubs GI/: No tenderness to palpation, soft, non rigid, normal to inspection, exam deferred MSK: Full active range of motion in all 4 extremities, atraumatic, bleeding noted to the tip of the left index finger, a portion of the finger has been removed secondary to injury, however no bone is exposed, portion of the nail has also been removed secondary to injury otherwise neurovascularly intact Skin: No rashes or lesions noted Neuro: Alert awake oriented x3, moves all 4 extremities spontaneously, cranial nerves intact, able to answer all questions appropriately follows commands appropriately Psych: Cooperative, negative suicidal or homicidal ideations Initial Vital Signs Initial Vital Signs: Vital Signs Temperature 98.4 F 08/09/24 06:15 Pulse Rate 73 08/09/24 06:15 Respiratory Rate 16 08/09/24 06:15 Blood Pressure 120/65 08/09/24 06:15 Pulse Oximetry 97 08/09/24 06:15 Oxygen Delivery Method Room Air 08/09/24 06:15 Course Orders Ordered: Discontinued Medications Morphine Sulfate (Morphine 4 Mg/Ml Inj) 4 mg IM NOW ONE Stop: 08/09/24 06:24 Last Admin: 08/09/24 06:29 Dose: 4 mg Documented By: KH Morphine Sulfate (Morphine 4 Mg/Ml Inj) 4 mg IM NOW ONE Stop: 08/09/24 07:56 Last Admin: 08/09/24 08:08 Dose: 4 mg Documented By: RB Tranexamic Acid (Tranexamic Acid 1,000 Mg Vial) 1,000 mg TOP NOW ONE Stop: 08/09/24 06:57 Last Admin: 08/09/24 06:58 Dose: 1,000 mg Documented By: AB Vital Signs Vital signs: Vital Signs - 8 hr 08/09/24 06:15 Temperature 98.4 F Pulse Rate 73 Respiratory Rate 16 Blood Pressure 120/65 Pulse Oximetry 97 Oxygen Delivery Method Room Air MDM - Wound/Laceration Differential Diagnosis Differential diagnosis: Likely laceration and avulsion of skin MDM Narrative Medical decision making narrative: 34-year-old presenting for cut to his left index finger states that at around 8:00 p.m. last night he was cooking food and cut the tip of his finger with a knife, on exam slow ooze noted to the distal aspect of the left finger, a portion of the finger is removed secondary to the injury but no bony exposure, patient is up-to-date on tetanus, he states that he is not on any blood thinner denies any other symptoms at this time. Did place Surgicel initially to control bleeding however this was unsuccessful therefore we will attempt to control with TXA. Discharge Plan Departure Patient Disposition: Home Clinical Impression: Finger laceration Activity Restrictions/Additional Instructions: Please follow up with your primary care doctor Please read the discharge instructions sheet carefully and bring all papers to all doctor follow-up visits, as it may contain information that your doctor may want to see. Disease processes change and evolve, if your symptoms worsen or if you develop any new symptoms that are concerning to you please return for evaluation. Your evaluation today does not show any evidence of any life-threatening/serious illnesses requiring admission to the hospital or surgery. Please follow-up with your doctor for re-evaluation in approximately 1 day. Seek immediate medical attention for any worrisome symptoms. *If you do not have a primary care provider please contact the [facility] Resource line at [phone]. They will ask some questions about your medical history and help get you set up with a doctor in the community. Prescriptions: No Action amoxicillin-pot clavulanate [Augmentin] 875-125 mg tablet 1 tab PO BID Qty: 14 0RF amoxicillin-pot clavulanate [Augmentin] 875-125 mg tablet 1 tab PO BID Qty: 14 0RF oxycodone-acetaminophen 5-325 mg tablet 1 tab PO Q6H PRN (Reason: pain) Qty: 14 0RF cyclobenzaprine 10 mg tablet 10 mg PO TID PRN (Reason: muscle spasm) Qty: 15 0RF prednisone 20 mg tablet 40 mg PO DAILY Qty: 8 0RF Referrals: Jeyson Rodriguez [Primary Care Provider, Medical] Stand Alone Forms: Patient Portal/API
[2024-08-09] MEDS: MORPHINE 4 MG/ML INJ IM ×2 (06:29→08:08)
[2024-08-09] MEDS: TRANEXAMIC ACID 1,000 MG VIAL 1000 MG TOP (06:58)
--- NOTE | 2024-08-09 07:35 | PC.NURSE ---
This RN met with patient and patient states that his pain is still 10/10. Provider informed by fellow RN and provider states he will see the patient first.
== END 2024-08-09 08:52 | disposition home or self-care (01) ==
PROVIDERS: Emergency Provider Student in an Organized Health Care Education/Training Program; PCP Nurse Practitioner Family
DX: S61.211A Laceration without foreign body of left index finger without damage to nail, initial encounter (principal); W26.0XXA Contact with knife, initial encounter
CPT/HCPCS: 96372; 99283; 99284; J2270